=== PATIENT | female | born 1980 | race Two or more races ===

== ENCOUNTER 2017-06-29 12:19 | Day surgery (SDC) | payer OTHER ==
[~2017-06-29] VITALS: Ht 162.6 cm; Wt 55.2 kg
[2017-06-29 13:06] VITALS: Ht 162.6 cm; Wt 55.2 kg
[2017-06-29 14:22] VITALS: BP 125/70; PULSE 75; RESP 15
--- NOTE | 2017-06-29 14:40 | OPPN ---
Date/Time of Note Date/Time of Note DATE: 06/29/17 TIME: 14:38 Proc Note GI Procedure Date 06/29/17 Indication: other (Abdominal pain) Pre-procedure Diagnosis Abdominal pain Post-procedure Diagnosis Impression: Mild distal esophagitis Moderate gastritis. Rule out H. pylori infection. Biopsies obtained Otherwise normal EGD. Plan: Omeprazole 40 mg daily Review pathology Follow-up as previously scheduled . Procedure Performed: Endoscopy (Plus biopsies) Surgeon DIRK DAMON MD See signature line Felt Carbonizer none Anesthesia Type: moderate sedation (Versed 4 mg/fentanyl 75 mcg) Tourniquet Time none EBL none Transfusion required none Biopsy 1: Body and antrum of the stomach. Grafts/Implants none Tubes/Drains none Complication(s) none Disposition: home Procedure Description After informed consent, with the patient/relatives understanding the procedure, its indications, potential risks and complications, including but not limited to : allergic reaction, bleeding, perforation or infection, and after all pertinent questions were answered to the patients satisfaction, the patient/ relatives signed witnessed informed consent. Following this, premedication was administered slowly IV push under careful cardiovascular and respiratory monitoring with pulse oximetry, automatic blood pressure, and monitoring and evaluation advisor. Once the sedative effect was achieved the patient was place in the left lateral decubitus, the panendoscope was introduced and advanced under visual control. Careful examination of the upper gastrointestinal tract, both on insertion as well as withdrawal of the instrument disclosing the following findings: ESOPHAGUS: the mucosa of the entire esophagus was carefully examined and showed the following findings: There is mild erythema of the mucosa at the esophagogastric junction. Otherwise the mucosa appears within normal limits. There is no evidence of varices, neoplasm, or stricture. No Hiatal Hernia identified. STOMACH: Upon entrance to the stomach air was insufflated, the gastric reyes distended normally. The mucosa of the fundus, body and antrum of the stomach was carefully examined both head-on and on retroflexion, and showed the following findings: There is moderate erythema and edema the mucosa of the body and antrum the stomach. Biopsies were obtained to rule out H. pylori infection. Otherwise the mucosa appears within normal limits with no abnormalities. There is no evidence of ulcers or neoplasm. PYLORUS: The pylorus was carefully examined and showed the following findings: the pylorus appears patent and within normal limits, with no evidence of gastric outlet obstruction. DUODENUM: The duodenal mucosa was carefully examined in the duodenal bulb as well as the second portion of the duodenum and showed the following findings: the mucosa appears unremarkable with no evidence of duodenitis, ulcer or neoplasm. Copies To: CC: DIRK DAMON MD, MORDO MD Jun 29, 2017 14:40
[2017-06-29] MEDS ORDERED: FENTAnyl 50 MCG/ML VIAL ONE (14:44)
[2017-06-29] MEDS ORDERED: MIDAZOLAM 1 MG/ML 2 ML INJ ONE ×2 (14:44)
[2017-06-29 15:08] VITALS: BP 134/68; PULSE 84; RESP 18
== END 2017-06-29 16:59 | disposition home or self-care (01) ==
LOC: GIL 12:19
PROVIDERS: ATTEND Internal Medicine Gastroenterology
DX: K29.50 Unspecified chronic gastritis without bleeding (principal); K20.8 Other esophagitis
CPT/HCPCS: 43239; 84703; J2250; J3010; Z7610; 88305; 88312

== ENCOUNTER 2018-12-22 10:02 | Emergency (ER) | payer SELFPAY ==
[~2018-12-22] VITALS: Ht 162.6 cm; Wt 57.8 kg
[2018-12-22 10:40] VITALS: Ht 162.6 cm; Wt 57.8 kg
[2018-12-22] MEDS ORDERED: MENT113G4 TP (11:18)
[2018-12-22] MEDS ORDERED: IBUP-1542 PO (11:18)
--- NOTE | 2018-12-22 11:19 | ERD ---
ER Documentation Chief Complaint Chief Complaint c/o left arm pain and numbness x1 day, denies injury HPI This is a 38-year-old woman complaining of 1 day of paresthesias to the left hand and some discomfort to the left lateral neck left shoulder which radiates down the entire left arm and affects the left axilla as well. She later stated she had mild paresthesias to the right hand as well. She denies any trauma, no fevers or chills, no falls, no pain or discomfort or changes to her breasts, no axillary swelling, no complaints of chest pain or shortness of breath. Patient has no personal family history of breast carcinoma ROS All systems reviewed and are negative except as per history of present illness. Medications Home Meds Active Scripts Menthol (BENGAY) 113 Gm Gel..gram., 113 GM TP TID PRN for PAIN, #1 Prov:LISA HONG MD 12/22/18 Ibuprofen* (Motrin*) 600 Mg Tab, 600 MG PO Q8 PRN for PAIN AND/OR INFLAMMATION, #30 TAB Prov:LISA HONG MD 12/22/18 Reported Medications [None] No Conflict Check 06/29/17 Allergies Allergies: Coded Allergies: No Known Allergy (Unverified , 12/22/18) PMhx/Soc None History of Surgery: Yes (UTERINE FIBROIDS REMOVED ) Anesthesia Reaction: No Hx Neurological Disorder: No Hx Respiratory Disorders: No Hx Cardiac Disorders: No Hx Psychiatric Problems: No Hx Miscellaneous Medical Probl: No Hx Alcohol Use: No Hx Substance Use: No Hx Tobacco Use: No Smoking Status: Never smoker Physical Exam Vitals Vital Signs Date Temp Pulse Resp B/P (MAP) Pulse Ox O2 O2 Flow FiO2 Time Delivery Rate 12/22/18 98.1 87 18 134/78 98 Room Air 11:44 (96) 12/22/18 98.9 72 20 138/78 100 10:40 (98) Physical Exam GENERAL: Well-developed, well-nourished, well-hydrated, in no apparent distress, looks nontoxic in appearance HEENT: Moist mucous membranes, pink conjunctiva, no cervical spine tenderness or step-off deformities, no goiter, no jaundice or icterus, there is mild tenderness to touch over the left trapezius, no cervical lymphadenopathy or axillary lymphadenopathy noted NEURO: Alert and oriented 3, cranial nerves II through XII intact bilaterally, pupils equal round reactive to light, no focal deficits or facial asymmetry, sensation intact distally Strength 5/5 in upper and lower extremities bilaterally CARDIAC: Regular rate and rhythm, no murmurs rubs or gallops LUNGS: Clear bilaterally no wheezing crackles or stridor SKIN: Warm and dry to touch, no abrasions, contusions, or hematomas, no lacerations, no ecchymosis, no target lesions, and without ulcers EXTREMITIES: No clubbing cyanosis or edema, calves are bilaterally symmetrical Results 24 hrs Current Medications Medications Dose Sig/Alex Start Time Status Last (Trade) Ordered Route PRN Stop Time Admin Dose Reason Admin Ibuprofen 600 mg ONCE ONCE 12/22/18 DC 12/22/18 (Motrin) PO 11:30 11:21 12/22/18 11:31 Procedures/MDM Patient has a normal exam and only 1 day of symptoms she will be managed as an outpatient with NSAIDs and I recommended follow-up with PMD should symptoms continue or worsen. I administered ibuprofen 600 mg p.o. x1 Differential diagnoses considered, included but not limited to acute coronary syndrome, pulmonary embolism, aortic dissection, abdominal aortic aneurysm, sepsis, stroke, meningitis, encephalitis, pneumonia, appendicitis, cholecystitis, bowel obstruction, pyelonephritis, nephrolithiasis, cystitis, as well as metabolic, hematologic, and electrolyte abnormalities. As well as abscess, cellulitis, fractures, and dislocations. Patient feels much better at this time, and vital signs are normal, symptoms have improved. I did give strict instructions to return to the ED if symptoms continue or worsen, patient will otherwise follow-up with primary care physician. Patient understood instructions and agreed to plan. Disclaimer: Inadvertent spelling and grammatical errors are likely due to EHR /dictation software use and do not reflect on the overall quality of patient care. Also, please note that the electronic time recorded on this note does not necessarily reflect the actual time of the patient encounter. Departure Diagnosis: Primary Impression: Cervical radiculopathy Additional Impression: Paresthesias Condition: Good Patient Instructions: Johnie, Cervical LISA HONG MD December 22, 2018 11:19
[2018-12-22] MEDS ORDERED: IBUPROFEN 600 MG TAB PO ONE (11:30)
[2018-12-22 11:44] VITALS: BP 134/78; PULSE 87; RESP 18
== END 2018-12-22 12:05 | disposition home or self-care (01) ==
LOC: E/R 10:02
DX: M54.12 Radiculopathy, cervical region (principal); R40.2142 Coma scale, eyes open, spontaneous, at arrival to emergency department; R40.2252 Coma scale, best verbal response, oriented, at arrival to emergency department; R40.2362 Coma scale, best motor response, obeys commands, at arrival to emergency department
CPT/HCPCS: 99282